=== PATIENT | female | born 1970 | race Caucasian/White ===

== ENCOUNTER 2025-07-30 06:23 | Inpatient (IN) | payer OTHER, SELFPAY ==
[2025-07-29 23:07] VITALS: BP 198/120
--- NOTE | 2025-07-29 23:54 | ED.GENMED ---
History of Present Illness
<Skylar Rios PA-C - Last Filed: 07/30/25 06:21>
General
Chief Complaint: Abdominal Pain
Source: patient
Exam Limitations: none
Time Seen by Provider: 07/29/25 23:49
Nursing documentation reviewed up to this point in time: agreed with
History of Present Illness
History of Present Illness:
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
and swelling for the past 10 days. There is nothing she can compare this pain to in the past. She reports that the pain is constant and she feels most comfortable when she lays on her left side. The pain occasionally radiates to the left side.
She also has experienced on and off vomiting for the past few days but denies any vomiting or nausea currently. Patient reports that this sensation feels like a gas bubble but has not gone away on its own. The patient reports that she has also had
poor appetite for about 1 to 2 months and reports that she has trouble gaining weight. She notes occasional chest discomfort which relieves with famotidine but denies current chest pain or shortness of breath. She denies any constipation or
diarrhea. She had a bowel movement this morning which was normal. She denies any rectal bleeding or pain. She also reports that she has had no intermittent burning sensation in her legs for the past multiple months. She reports that it feels
like she is getting a constant EMG. She denies any fevers at home. She has prior surgical history of gallbladder removal, esophageal dilation, knee surgery, total hip replacement, as well as tubal ligation.
Past History
<Skylar Rios PA-C - Last Filed: 07/30/25 06:21>
Past History
ED Past Medical History: CHF, GERD, HTN, Valvular disease, Other (Alcoholic hepatitis, portal vein thrombosis) and Other (Right Brachial plexus, she wears a glove on her right hand for chronic intermittent right hand swelling and)
ED Past Surgical History: Cholecystectomy, Gynecological and Orthopedic
Patient has exhibited threatening behavior?: No
PSI?: No
Social History
Tobacco: Smoker
Alcohol: None
Drug: None
Personal:
Living: with family
Employment: Employed
Family History
Family History: Diabetes and Hypertension
Review of Systems
<Skylar Rios PA-C - Last Filed: 07/30/25 06:21>
Review of Systems
All Other Systems: ROS reviewed and negative except as documented in HPI and ROS
Phy Exam
<Skylar Rios PA-C - Last Filed: 07/30/25 06:21>
Physical Exam
Physical Exam:
General: Patient is well appearing and in no acute distress; non-toxic
Skin: Warm and dry, no rashes or lesions
Head: Normocephalic, atraumatic
Eyes: Sclera non-icteric. EOMs intact.
Cardiac: Regular rate and rhythm, normal
Peripheral Vascular: No lower extremity swelling or edema
Pulm: Normal respiratory effort, no wheezes, rales, rhonchi
Abdomen: Right-sided abdominal tenderness noted to palpation, no palpable abdominal mass, normoactive bowel sounds
Neuro: CN II-XII intact, no focal neurologic deficits.
Psychiatric: Appropriate mood and affect.
Course
<Skylar Rios PA-C - Last Filed: 07/30/25 06:21>
Orders/Labs/Results
Orders:
Orders
07/30/25 00:08
CT Abd/pel W Iv And Oral Contr Urgent
Comment:
Reason For Exam: RLQ ab pain, swelling
Cardiac Monitoring- Treatment ONCE
Urinalysis Reflex To Culture Urgent
0.9% Sodium Chloride 500 ml [Nss] 500 ml IV BOLUS
Iohexol [Omnipaque] See Protocol PO NOW STA
Ketorolac [Toradol] 15 mg IV NOW STA
07/30/25 01:19
Complete Blood Count/With Diff Routine
07/30/25 01:53
Morphine Sulfate 2 mg IV NOW STA
07/30/25 02:16
Comprehensive Metabolic Panel Urgent
Comment: REDRAW
Lipase Urgent
Comment: REDRAW
Serum Osmolality Urgent
Comment: ADDED
07/30/25 02:23
Electrocardiogram (*1) Urgent
Reason for Study: Abdominal Pain
07/30/25 03:21
HYDROmorphone [Dilaudid] 0.5 mg IV NOW STA
07/30/25 04:04
Add On- LAB Urgent
Tests Added?: serum osmolality
Osmolality, Random Urine Urgent
Abnormal Lab Results
07/30/25 07/30/25
01:19 02:16
WBC 16.7 H 10^3/uL
(4.8-10.8)
MCH 31.1 H pg
(27.0-31.0)
Plt Count 401 H 10^3/uL
(130-400)
Abs Immat Gran (auto) 0.1 H 10^3/uL
(0-0.05)
Absolute Neuts (auto) 14.3 H 10^3/uL
(1.4-6.5)
Absolute Monos (auto) 0.9 H 10^3/uL
(0.1-0.6)
Neutrophils % 85.6 H %
(42.2-75.2)
Lymphocytes % 7.2 L %
(20.5-51.1)
Sodium 129 L mmol/L
(135-145)
Chloride 96 L mmol/L
(98-107)
BUN 28 H mg/dl
(7-17)
Glucose 122 H mg/dl
(70-99)
Serum Osmolality 307 H mOsm/kg
(275-300)
Lipase 426 H U/L
(23-300)
07/30/25 01:19
07/30/25 02:16
Vital Signs
Initial and Last Documented VS:
Initial Vital Signs
Temp Pulse Resp BP Pulse Ox
98.1 F 130 26 198/120 97
07/29/25 23:07 07/29/25 23:07 07/29/25 23:07 07/29/25 23:07 07/29/25 23:07
Last Documented Vital Signs
Temp Pulse Resp BP Pulse Ox
98.1 F 80 21 125/77 97
07/29/25 23:07 07/30/25 06:00 07/30/25 06:00 07/30/25 05:00 07/29/25 23:55
<Isela Laughlin DO - Last Filed: 07/30/25 05:10>
Orders/Labs/Results
Orders:
Orders
07/30/25 00:08
CT Abd/pel W Iv And Oral Contr Urgent
Comment:
Reason For Exam: RLQ ab pain, swelling
Cardiac Monitoring- Treatment ONCE
Urinalysis Reflex To Culture Urgent
0.9% Sodium Chloride 500 ml [Nss] 500 ml IV BOLUS
Iohexol [Omnipaque] See Protocol PO NOW STA
Ketorolac [Toradol] 15 mg IV NOW STA
07/30/25 01:19
Complete Blood Count/With Diff Routine
07/30/25 01:53
Morphine Sulfate 2 mg IV NOW STA
07/30/25 02:16
Comprehensive Metabolic Panel Urgent
Comment: REDRAW
Lipase Urgent
Comment: REDRAW
Serum Osmolality Urgent
Comment: ADDED
07/30/25 02:23
Electrocardiogram (*1) Urgent
Reason for Study: Abdominal Pain
07/30/25 03:21
HYDROmorphone [Dilaudid] 0.5 mg IV NOW STA
07/30/25 04:04
Add On- LAB Urgent
Tests Added?: serum osmolality
Osmolality, Random Urine Urgent
Abnormal Lab Results
07/30/25 07/30/25
01:19 02:16
WBC 16.7 H 10^3/uL
(4.8-10.8)
MCH 31.1 H pg
(27.0-31.0)
Plt Count 401 H 10^3/uL
(130-400)
Abs Immat Gran (auto) 0.1 H 10^3/uL
(0-0.05)
Absolute Neuts (auto) 14.3 H 10^3/uL
(1.4-6.5)
Absolute Monos (auto) 0.9 H 10^3/uL
(0.1-0.6)
Neutrophils % 85.6 H %
(42.2-75.2)
Lymphocytes % 7.2 L %
(20.5-51.1)
Sodium 129 L mmol/L
(135-145)
Chloride 96 L mmol/L
(98-107)
BUN 28 H mg/dl
(7-17)
Glucose 122 H mg/dl
(70-99)
Serum Osmolality 307 H mOsm/kg
(275-300)
Lipase 426 H U/L
(23-300)
07/30/25 01:19
07/30/25 02:16
Vital Signs
Initial and Last Documented VS:
Initial Vital Signs
Temp Pulse Resp BP Pulse Ox
98.1 F 130 26 198/120 97
07/29/25 23:07 07/29/25 23:07 07/29/25 23:07 07/29/25 23:07 07/29/25 23:07
Last Documented Vital Signs
Temp Pulse Resp BP Pulse Ox
98.1 F 80 21 125/77 97
07/29/25 23:07 07/30/25 06:00 07/30/25 06:00 07/30/25 05:00 07/29/25 23:55
<Skylar Rios PA-C - Last Filed: 07/30/25 06:21>
MDM/Problems Addressed
Differential Diagnosis Includes:
Differentials include appendicitis, small bowel obstruction, colitis, diverticulitis
MDM/Problems Addressed:
55-year-old female presents to the ER today with concerns of right sided abdominal pain and swelling. She also had nausea she episodes of vomiting but none today. She is afebrile. Physical exam she is well-appearing no acute distress does have
tenderness palpation on the right side abdomen. Normal active bowel sounds. No palpable abdominal masses. Labs reviewed leukocytosis noted. She is mildly hyponatremic. Elevated BUN to creatinine ratio. She is given IV fluids. Lipase 426,
there is questionable component of chronic pancreatitis noted in her chart. CAT scan reviewed, there is noted to be multiple peripancreatic fluid collections and calcifications causing mass effect resulting in moderate to severe narrowing of the
origin of the portal vein and distal most portion of the superior mesenteric vein and splenic vein. There is also mild dilation of the CBD which may reflect chronic postcholecystectomy changes she does have normal LFTs. Message sent to GI doctor
on-call, Dr. Paulino. Patient referred for admission.
Chronic conditions affecting care:
CHF, A-fib, GERD, chronic pancreatitis
<Skylar Rios PA-C - Last Filed: 07/30/25 06:21>
*Pulse Oximetry
SaO2: 97
Patient hypoxic: no
*Critical Care Note
Total Time (30-74mins, 75-104mins- exclusive of procedures): Not Applicable
Data Reviewed
Review of Other/Old Records Reveals: Records (reviewed discharge summary from 4/8/22 patient seen for suicide attempt from medication overdose)
Source: patient and records
<Skylar Rois PA-C - Last Filed: 07/30/25 06:21>
Update Note
Update Note:
Update, patient reports that the pain medication intially helped a bit but now her pain has returned and is severe rating it a 8/10, requesting more pain meds will give dose of dilaudid
ED Attending Note
<Skylar Rios PA-C - Last Filed: 07/30/25 06:21>
-
Portions of this chart may have been created with voice recognition software.� Occasional wrong word or��sound alike� substitutions may have occurred due to the inherent limitations of voice recognition software.
<Isela Laughlin DO - Last Filed: 07/30/25 05:10>
ED Attending Note
Patient seen and examined by attending physician: Yes
I performed the substantive portion of visit, reviewed & personally made and approve the management plan that is documented in note by myself or ROXANE.: Yes
I performed a history and physical exam of patient and discussed management with resident, I reviewed resident's note and agree with documented findings and plan of care.: Yes
ED Attending Note:
65-year-old female with prior history of EtOH abuse with cirrhosis presenting to the emergency department for upper abdominal pain. Patient reports symptoms for the past 10 days. Notes intermittent nausea and vomiting. Denies any fever. Denies
chest pain or difficulty breathing. Notes surgical history of cholecystectomy. Vital signs on arrival significant for hypertension, however improved after pain control.
On exam patient is in no acute distress, nontoxic. On abdominal exam, noted to have generalized tenderness to the upper abdomen as well as the right side of the abdomen. Labs and CT imaging obtained prior to my assessment. Labs show leukocytosis.
Also mild elevation of lipase and mild hyponatremia. CT shows multiple suspected pancreatic pseudocyst. Mass effect from the cyst is causing some narrowing to the portal vein and the SMV. Suspect etiology of patient's pain. Patient has required
multiple doses of pain medication. For this reason we will admit for pain management and GI consultation.
Discharge Plan
Departure
Patient Disposition: Admit
Date of Disposition: 07/30/25
Time of Disposition: 05:53
Admit to: Med/Surg
Presentation/result/management discussed w/ accepting MD/DO: Hospitalist
Condition: Fair
Discharge Problem:
Intractable abdominal pain
Prescriptions:
No Action
atenolol 25 MG tablet
12.5 mg PO DAILY Qty: 0 0RF
oxycodone-acetaminophen [Percocet] 5-325 mg tablet
1 tab PO Q8H PRN (Reason: pain) Qty: 7 0RF
acetaminophen 325 MG tablet
650 mg PO Q8HPRN PRN (Reason: mild pain)
hydrocodone-acetaminophen 1 TABLET tablet
1 tab PO Q6HPRN PRN (Reason: moderate pain)
Patient Comments:
12/21/21- filled #10 on 11/19/21
pantoprazole 40 MG tablet,delayed release (DR/EC)
40 mg PO DAILY
naproxen sodium 220 MG tablet
220 mg PO BID
Patient Comments:
12/21/21 ss; filled #24 for 12 day supply on 11/19/21
Referrals:
NONE,* [Family Provider, Internal Medicine]
Interventions
Interventions:
*Risk Screen - Suicide Last Done: 07/29/25 23:07
*General Assessment Last Done: 07/30/25 00:53
*Neglect/Abuse Screening Last Done: 07/29/25 23:07
*ED COVID-19 Vaccine History Last Done: 07/30/25 00:53
*ED Influenza Vaccine History Last Done: 07/30/25 00:53
SJ-Rczyfj-Dxitbxgugf Assessment Last Done: 07/30/25 01:35
Discharge Date and Time
Print Language: FRENCH
[2025-07-30] VITALS (11 sets, daily range): BP systolic 98–168; BP diastolic 56–89; BMI 16.7; BMI 16.3
[2025-07-30] MEDS: OMNIPAQUE 50 ML PO (00:35)
[2025-07-30] MEDS: TORADOL 15 MG IV (00:35)
[2025-07-30] MEDS: NSS 500 IV (00:35)
[2025-07-30 01:35] LABS: Hematocrit 44.0 % (37.0-47.0); Hemoglobin 14.8 g/dL (12.0-16.0); Mean Corp Hgb Conc. 33.6 g/dL (33.0-37.0); Mean Corpuscular Volume 92.4 fL (81.0-99.0); Nucleated Red Blood Cells % 0 %; Platelet Count 401 10^3/uL (130-400); Red Cell Dist. Width 13.1 % (11.5-14.5)
[2025-07-30] MEDS: MORPHINE SULFATE 2 MG IV (02:03)
[2025-07-30 03:14] LABS: ALT (SGPT) 17 U/L (0-35); AST (SGOT) 20 U/L (14-36); Albumin 3.7 g/dl (3.5-5.0); Alkaline Phosphatase 86 U/L (38-126); Blood Urea Nitrogen 28 mg/dl (7-17); Calcium 9.3 mg/dl (8.4-10.2); Carbon Dioxide 28 mmol/L (22-30); Chloride 96 mmol/L (98-107); Estimated Creatinine Clearance 67 ml/min; Glucose 122 mg/dl (70-99); Lipase 426 U/L (23-300); Potassium 3.6 mmol/L (3.5-5.1); Sodium 129 mmol/L (135-145); Total Protein 6.8 g/dl (6.3-8.2); eGFR > 60.00
[2025-07-30] MEDS: DILAUDID 0.5 MG IV ×5 (03:34→23:22)
--- NOTE | 2025-07-30 06:06 | HPS.HSE ---
Family Physician
-
Family Physician: * NONE
Chief Complaint
-
Abdominal pain
History of Present Illness
This is a 55-year-old with past medical history significant for CHF with preserved EF, history of prior alcohol dependence, portal vein thrombosis status post cardioversion and now off, CHF with preserved EF, GERD with H. pylori, history of
esophageal dysphagia with Schatzki ring s/p esophageal dilation, and gallstones s/p cholecystectomy who presents to the emergency department with worsening abdominal pain.
Patient reports right-sided abdominal pain and distention for about 10 days. She reports associated nausea and intermittent vomiting. She denies vomiting currently. She has distended sensation of gas that is also intermittent. She reports with
poor appetite and no weight gain for about 1 to 2 months. She reports mild chest discomfort but denies any shortness of breath chest pain palpitations. She has not had any constipation or diarrhea. She has not had any urinary symptom. She denies
any melena or hematochezia. She has not had any fevers or chills. Patient reports she drinks occasionally about 3 times a week. She stated that following her 6-month anticoagulation and she had a repeat study which showed resolution of portal
vein thrombosis on anticoagulation was discontinued.
On arrival in the emergency department she was afebrile, blood pressure was 125/77 with a pulse of 81 and she was satting 92% on room air. ECG shows a normal sinus rhythm at rate of 92. She had a white count of 16.7 otherwise CBC was unremarkable.
Sodium was 129 the rest of the electrolytes were normal with normal BUN and creatinine. Lipase was elevated at 426 with normal [address]s.
CT of the abdomen pelvis showing multiple peripancreatic fluid collections with well-defined peripheral rims of enhancement consistent with with pseudocysts. There is associated pancreatic calcifications, mild fatty infiltration along the margins
of the pancreas constant with acute on chronic pancreatitis.
There is some mass effect from the collections resulting in moderate to severe narrowing at the origin of the portal vein and distal portion of the SMV and splenic vein.
She is status post cholecystectomy, dilation of the CBD we may reflect chronic postcholecystectomy changes. Slight increase compared to prior.
Medical History
Past Medical History
Past Medical History: Reports Other
Additional Past Medical History:
Nephrolithiasis
Hypertension
GERD
Esophageal Schatzki ring
Cervical dysplasia
H. pylori
CHF with preserved EF
Depression
Past Surgical History: Reports Other
Additional Past Surgical History:
Tubal ligation
Cholecystectomy
Right total hip arthroplasty
Social History
Tobacco: Smoker
Alcohol: Occasional
Drug: None
Living: With Family
Family History
Family History: Not pertinent
Allergies / Home Medications
Allergies reflects when Allergies were last updated in [facility].
Home Medications with original date entered in [facility]
Allergy/Medication List:
Allergies
Allergy/AdvReac Type Severity Reaction Status Date / Time
adhesive tape Allergy Hives Verified 07/29/25 23:10
cephalexin Allergy Hives Verified 07/29/25 23:10
Cephalosporins Allergy Hives Verified 07/29/25 23:10
erythromycin base Allergy Hives Verified 07/29/25 23:10
quetiapine (From Seroquel) Allergy Unknown Verified 07/29/25 23:10
tetracycline Allergy Hives Verified 07/29/25 23:10
Tetracyclines Allergy Hives Verified 07/29/25 23:10
Home Medications
acetaminophen 325 mg tablet 650 mg PO Q8HPRN PRN mild pain 12/21/21
hydrocodone 5 mg-acetaminophen 325 mg tablet 1 tab PO Q6HPRN PRN moderate pain 12/21/21
naproxen sodium 220 mg tablet 220 mg PO BID Pain 12/21/21
pantoprazole 40 mg tablet,delayed release 40 mg PO DAILY Gastrointestinal issue 12/21/21
atenolol 25 mg tablet 12.5 mg (1/2 x 25 mg) PO DAILY Blood pressure ##0 12/24/21
oxycodone-acetaminophen 5 mg-325 mg tablet (Percocet) 1 tab PO Q8H PRN pain #7 tabs 01/10/23
Review of Systems
-
Constitutional: Reports No Symptoms
EENT: Reports No Symptoms
Respiratory: Reports No Symptoms
Cardiac: Reports No Symptoms
Abdomen/GI: Reports Abdominal Pain
: Reports No Symptoms
Musculoskeletal: Reports No Symptoms
Skin: Reports No Symptoms
Neurological: Reports No Symptoms
Endocrine: Reports No Symptoms
Hematologic/Lymphatic: Reports No Symptoms
Psych: Reports No Symptoms
Physical Exam
Vital Signs
Vital Signs
Temp Pulse Resp BP Pulse Ox
98.1 F 80 21 125/77 97
07/29/25 23:07 07/30/25 06:00 07/30/25 06:00 07/30/25 05:00 07/29/25 23:55
Physical Exam
General: Well Developed, Well Nourished and No Apparent Distress
HEENT: NormoCephalic, Moist mucous membranes and Atraumatic
Respiratory: Clear
Cardiac: S1/S2 and Regular Rhythm; No Murmur or Rub
GI: Soft, Non Distended and Normal Bowel Sounds; No Organomegaly
Rectal: Deferred by Provider
Musculoskeletal: No Clubbing, No Cyanosis and No Edema
Skin: No Rash
Neuro: AO x 3 and Nonfocal/grossly intact
Laboratory Results
-
07/30/25 01:19
07/30/25 02:16
Laboratory Results
Total Bilirubin 0.5 mg/dl (0.2-1.3) 07/30/25 02:16
AST 20 U/L (14-36) 07/30/25 02:16
ALT 17 U/L (0-35) 07/30/25 02:16
Alkaline Phosphatase 86 U/L (38-126) 07/30/25 02:16
Lipase 426 U/L (23-300) H 07/30/25 02:16
Data Reviewed
-
CT Scan: Report Reviewed by me
Medical Tests (Nuc Med, Echo, EKG etc): Image Personally Visualized and interpreted
Lab Data: Labs Reviewed by me
Old Records: Reviewed
Impression/Plan
-
IMPRESSION:
55-year-old with past medical history of alcohol abuse, history of prior acute pancreatitis, portal vein thrombosis, hypertension, GERD, CHF with preserved EF presenting to the emergency department with subacute abdominal pain for at least 10 days
and found to have findings consistent with acute and chronic pancreatitis with stenosis/narrowing of portal vein as well as SMV and splenic vein distal portion and secondary to pancreatic pseudocysts.
PLAN:
Acute on chronic pancreatitis -suspect this is secondary to development of the pseudocysts and calcifications
-Admit to MedSurg
-npo
-IV fluids
-Pain control and antiemetics
- ppi iv
-Trend LFTs
-In no overt signs of infection, hold off on antibiotic
-No thrombosis, no indication for anticoagulation
-GI consultation, possible IR cyst decompression
Hyponatremia - Suspect secondary to hypovolemia and free water intake
- IV NS fluids for now
- and repeat na in 24 hours
- antiemetics
- check urine osm and Na
DVT PPX - lovenox sq
Code status - Full Code
--- NOTE | 2025-07-30 08:10 | W.PN.HOSP.TC ---
Today's Communication/Plan
-
See pn
Assessment / Plan
Assessment / Plan
55yo F with PMHX of Schatzki ring and esophageal narrowing with Hx of esophageal dilations, PV thrombosis, meningioma, cholecystectomy, cronic pancreatitis, bipolar, HX of alcohol use d/o, HFpEF, current smoker came with 10 days of RUQ and
epigastric pressure and pain, CT showed numerous pancreatic calcifications with the largest one 3.1cm and the other 2.1cm causing mass effect on portal vein, SMV and splenic karri with possible acute on chronic pancreatitis. Also compained of new LLQ
outpouchin, found rducible non-incarcerated abd hernia
A/P:
#Acute on chronic pancreatitis
#Pancreatic cysts with mass effect on portal vein, SVC and splenic vein
unclear if due to recurrent alcohol intake
NPO
GI consult
pain mgmt
IVF
#Hyponatremia
follow BMP
check Uosm
cont NS
#Leukocytosis
patient without urinary, respiratory symptoms
follow CBC off ABx
#b/l LE dermatitis, suspect venous insufficiency
quit smoking
#Nicotine dependency
counseled on cessation
nicoderm
#Bipolar
outpatient f/u with psychiatry
#Calcification of plantar ligament
outpatient podiatry
#Abdominal hernia
Outpatient GenSx
DVT ppx lovenox
FUll code
I have spent at least 56min reviewing chart, test results, communication with consultants and providing direct patient care
Anticipated Discharge: 24 - 48 hours
Subjective/Interval History
-
Date of Service: July 30, 2025
Objective Data
-
Labs:
Laboratory Results
07/30/25 07/30/25 07/30/25
00:31 01:19 02:16
WBC Cancelled 16.7 H
Hgb Cancelled 14.8
Hct Cancelled 44.0
Plt Count Cancelled 401 H
Sodium Cancelled Cancelled 129 L
Potassium Cancelled Cancelled 3.6
Chloride Cancelled Cancelled 96 L
Carbon Dioxide Cancelled Cancelled 28
BUN Cancelled Cancelled 28 H
Creatinine Cancelled Cancelled 0.6
Glucose Cancelled Cancelled 122 H
Calcium Cancelled Cancelled 9.3
Total Bilirubin Cancelled Cancelled 0.5
AST Cancelled Cancelled 20
ALT Cancelled Cancelled 17
Alkaline Phosphatase Cancelled Cancelled 86
07/30/25
08:05
WBC
Hgb
Hct
Plt Count
Sodium Pending
Potassium Pending
Chloride Pending
Carbon Dioxide Pending
BUN Pending
Creatinine Pending
Glucose Pending
Calcium Pending
Total Bilirubin
AST
ALT
Alkaline Phosphatase
Vital Signs:
Vital Signs
Temp Pulse Resp BP Pulse Ox
98.1 F 74 18 118/73 97
07/29/25 23:07 07/30/25 07:15 07/30/25 07:15 07/30/25 07:00 07/29/25 23:55
Review of Systems
-
History Source: Patient
All other systems: Reviewed and negative
Physical Exam
-
General: No Apparent Distress
HEENT: Normocephalic
Respiratory: Clear to Auscultation
Cardiac: Regular Rhythm
GI: Soft, Nondistended, Tender (epgastrium) and Other (LLQ hernia)
Genito-urinary: No Costovertebral Tender
Musculoskeletal: No Clubbing, No Cyanosis and No Edema
Neuro: Awake, Alert, Oriented and AO x 3
Psych: Calm
--- NOTE | 2025-07-30 09:10 | CON.GI ---
Addendum entered and electronically signed by Noreen Noyola Do, MD 07/30/25 16:25:
I saw and evaluated the patient. I reviewed the resident�s note and agree with findings and plan as documented in the resident�s note.
Aishwarya is a 55yo W with h/o ETOH abuse, recurrent pancreatitis and chronic pain who presents for worsening epigastric abd pain with N/V. Her last ETOH drink was over the weekend. She states that abd pain now is 7 out of 10. She is ambulatory. Her
last pancreatitis painful episode was about 1 yr ago. She lives with . She has h/o reflux and uses pepcid OTC PRN basis. She lost health insurance and has not gotten routine medical care. Vitals stable. abd thin diffusely TTP, R inguinal
reducible hernia. Hypoactive BS. Labs reviewed
Impression
- Abd pain consistent with acute on chronic pancreatitis
Suspect ETOH related
She is s/p cholecystectomy
- Positive urine drug screen
- Possible R sided inguinal hernia
- Lack of health insurance
- ETOH abuse
- Chronic pain
- GERD
- Wt loss
- h/o PVT
- Afib
Recommendation
- C/w IVF
- Trial CLD upon pt's request
- Counseled on ETOH cessation
- Appreciate social work assistance. She will try to obtain health insurance
- C/w pain management and anti-emetics per primary team
- C/w PPI daily IV
- Miralax daily
Will follow with you
Original Note:
Consultation
-
Date/Time Consultation Requested: 07/30/2025 8:33
Date/Time Consultation Performed: 07/30/2025 8:33
Requesting Provider: Dr. Allen
Performing Provider: Dr. Paulino
Reason for Consultation: pancreatic cysts
Medical History
Chief Complaint / HPI
Chief Complaint: abdominal pain, nausea, vomiting
History of Present Illness:
55yoF PMH HFpEF w/ 'leaky valve', alcohol use disorder, portal vein thrombosis, GERD w H Pylori, esophageal dysphagia w/ schatzki ring, cholecystectomy, chronic pain, thyroid nodule, possible meningioma dx, presenting with abdominal pain and
intermittent nausea for 10 days.
Pt reports feeling a protruding, uncomfortable mass in her RLQ about 10 days ago when she began feeling nauseas and abdominal pain in her epigastrium. Pt reports worsened pain over the weekend. She describes the epigastric pain as dull, achy that is
intermittent. She reports only occasional postprandial pain. Pt reports intermittent nausea and vomiting over the last few days but none currently. Denies hematemesis and hematochezia. She reports normal BM, for her is once every 3 days. Denies
recent changes in BM. Pt reports some lightheadedness over the last few days as well as muscle cramps throughout her body and extremities.
She has chronic history of alcohol use since her son in 2010. She reports drinking heavily for about 10 years that were previously associated with about 5 acute bouts of pancreatitis during this time. She reports reducing her intake of alcohol
to around 2 drinks every 4 or so days, which says is significantly less than previously. Last drink of alcohol was Tuesday. Pt describes this pain as different from prior episodes of pancreatitis. She describes prior episodes as debilitating, like
she is dying with nonstop emesis. She describes this pain instead as discomfort with intermittent emesis. Additionally, pt reports being hungry and having desire to eat which is different than prior episodes.
Pt reports having EGD every year or two for her schatzki ring, last one we have record of was in 2020 with EUS demonstrating evidence of chronic pancreatitis. She reports losing insurance coverage about a year ago, so she has not been able to get
her prescribed psychiatric medications including abilify, lamictal, trazadone. Pt reports significant weight loss over the last 3 months. She attributes the weight loss to her psychiatric illness, reporting it is a way of passive suicide, though she
is not actively suicidal with no intent of harming herself currently. She reports eating when she does feel hungry. Last meal yesterday afternoon.
Of note, pt has remote hx of testing positive for H pylori around 20 years ago. She states that she had an allergic reaction to the antibiotic course, so she did not complete tx. However, repeat EGD bx have been negative for H pylori since.
Past Medical History
Past Medical History: CHF (preserved EF), GERD (schaztki ring, remote h pylori), HTN, Valvular Disease (pt reports 2: tricuspid and another unknown one), Psychiatric (bipolar) and Other (possible meningioma read on brain MRI at [facility])
Past Surgical History: Cholecystectomy
Social History
Tobacco: Smoker (5-7 cigarettes/day for 25 years)
Alcohol: Chronic Alcoholic (previously more, now reported about 2 drinks 4 days a week)
Personal:
Allergies / Home Medications
Allergy/AdvReac Type Severity Reaction Status Date / Time
adhesive tape Allergy Hives Verified 07/29/25 23:10
cephalexin Allergy Hives Verified 07/29/25 23:10
Cephalosporins Allergy Hives Verified 07/29/25 23:10
erythromycin base Allergy Hives Verified 07/29/25 23:10
quetiapine (From Seroquel) Allergy Unknown Verified 07/29/25 23:10
tetracycline Allergy Hives Verified 07/29/25 23:10
Tetracyclines Allergy Hives Verified 07/29/25 23:10
�Medication �Instructions �Recorded
acetaminophen 325 mg tablet 650 mg PO Q8HPRN PRN mild pain 12/21/21
hydrocodone 5 mg-acetaminophen 325 1 tab PO Q6HPRN PRN moderate pain 12/21/21
mg tablet
naproxen sodium 220 mg tablet 220 mg PO BID Pain 12/21/21
pantoprazole 40 mg tablet,delayed 40 mg PO DAILY Gastrointestinal 12/21/21
release issue
atenolol 25 mg tablet 12.5 mg (1/2 x 25 mg) PO DAILY 12/24/21
Blood pressure ##0
oxycodone-acetaminophen 5 mg-325 1 tab PO Q8H PRN pain #7 tabs 01/10/23
mg tablet (Percocet)
Review of Systems
-
History Source: Patient
All other systems: A 12 pt ROS was Negative except as stated above in HPI
Constitutional: Reports Weight Loss
EENT: Reports No Symptoms
Respiratory: Reports No Symptoms
Cardiac: Reports Palpitations (baseline)
Abdomen/GI: Reports Abdominal Pain, Nausea and Vomiting; Denies Diarrhea, Constipated, Bloody Stools or Black Stools
Musculoskeletal: Reports Other (muscle cramping)
Skin: Reports No Symptoms
Neurological: Reports Other (lightheaded)
Endocrine: Reports No Symptoms
Vital Signs
Temp Pulse Resp BP Pulse Ox
98.6 F 76 17 131/79 99
07/30/25 08:38 07/30/25 08:38 07/30/25 08:38 07/30/25 08:38 07/30/25 08:38
Physical Exam
Exam
General: No Apparent Distress, Comfortable and Good Appetite (wants to order food)
HEENT: Normocephalic, Anicteric and Moist Mucous Membranes
Respiratory: Clear and Non Labored Respirations
Cardiac: S1/S2 and Regular Rhythm
GI: Soft, Non Distended, Tender (upper quadrants) and Other (protruding, hernia-like mass RLQ, nontender, reducible)
Musculoskeletal: No Edema
Skin: Warm and Dry
Neuro: AO x 3 and Nonfocal/Grossly Intact
Psych: Calm
Results
WBC 16.7 10^3/uL (4.8-10.8) H 07/30/25 01:19
Hgb 14.8 g/dL (12.0-16.0) 07/30/25 01:19
Hct 44.0 % (37.0-47.0) 07/30/25 01:19
MCV 92.4 fL (81.0-99.0) 07/30/25 01:19
Plt Count 401 10^3/uL (130-400) H 07/30/25 01:19
Absolute Neuts (auto) 14.3 10^3/uL (1.4-6.5) H 07/30/25 01:19
Sodium 129 mmol/L (135-145) L 07/30/25 02:16
Potassium 3.6 mmol/L (3.5-5.1) 07/30/25 02:16
Chloride 96 mmol/L (98-107) L 07/30/25 02:16
Carbon Dioxide 28 mmol/L (22-30) 07/30/25 02:16
BUN 28 mg/dl (7-17) H 07/30/25 02:16
Creatinine 0.6 mg/dL (0.6-1.0) 07/30/25 02:16
Calcium 9.3 mg/dl (8.4-10.2) 07/30/25 02:16
Total Bilirubin 0.5 mg/dl (0.2-1.3) 07/30/25 02:16
AST 20 U/L (14-36) 07/30/25 02:16
ALT 17 U/L (0-35) 07/30/25 02:16
Alkaline Phosphatase 86 U/L (38-126) 07/30/25 02:16
Lipase 426 U/L (23-300) H 07/30/25 02:16
Diagnostic Image Results: CT abd
IMPRESSION:
Findings of acute on chronic pancreatitis with multiple peripherally enhancing peripancreatic collections along the pancreatic head/uncinate process which are likely pseudocysts. The largest measures 4.9 cm anteriorly and extends along the lesser
curvature of the stomach. There is associated local mass effect with severe narrowing of the proximal main portal vein/confluence of the splenic vein and superior mesenteric vein.
Prior cholecystectomy. There is mild intrahepatic and extra hepatic biliary duct dilation with the common bile duct measuring 1.0 cm. This may be reservoir effect in the setting of prior cholecystectomy, however the common bile duct appears
increased in size when compared with prior. Recommend correlation with lab values if there is concern for biliary obstruction.
Small volume perihepatic and perisplenic free fluid as well as small volume free fluid in the pelvis.
Preliminary report provided by [facility] at 0426.
11/14/24 MRI
1. MILD ACUTE INTERSTITIAL EDEMATOUS PANCREATITIS.
2. 4.1 cm oval-shaped circumscribed PANCREATIC PSEUDOCYST in the head of the pancreas which has enlarged since 05/13/2021.
3. Mild biliary dilatation without evidence for choledocholithiasis or obstructing mass.
4. Previous cholecystectomy.
5. Moderate portacaval and mild lianne hepatis lymphadenopathy.
6. Minimal ascites in the right subhepatic space and right paracolic gutter.
Prior GI Procedures:
EGD: EUS 07/08/21
Impression: - Pancreas with changes indeterminate for chronic
pancreatitis by Heartwell criteria
- No evidence of choledocholithiasis
- No lymphadenopathy by echoendoscopic criteria
Findings:
Localized mild mucosal changes characterized by congestion and erythema
were found in the lower third of the esophagus. Biopsies were taken with
a cold forceps for histology. There was no evidence of Schatskis ring
The entire examined stomach was normal.
The examined duodenum was normal.
05/31/14
Impression: - Normal duodenal bulb and 2nd part of the duodenum.
Biopsied.
- Erythematous mucosa in the antrum. Biopsied.
- Erythematous mucosa in the gastric body. Biopsied.
- Erythematous mucosa in the gastric fundus. Biopsied.
- Hiatus hernia.
- LA Grade A reflux esophagitis.
- Z-line regular, 39 cm from the incisors.
- Normal middle third of esophagus. Biopsied.
- Esophageal motility disorder.
- Non-obstructing Schatzki ring.
Colonoscopy:
Assessment / Plan
-
55yoF PMH HFpEF w/ 'leaky valve', alcohol use disorder, portal vein thrombosis, GERD w H Pylori, esophageal dysphagia w/ schatzki ring, cholecystectomy, thyroid nodule, meningioma, presenting with likely acute on chronic pancreatitis.
AFVSS. WBC 16.7 in setting of acute inflammation. Lipase 426, with CT demonstrating acute on chronic pancreatitis with pseudocysts. MRI in 2021 demonstrated 4.1cm pseudocyst at the time with similar findings of acute pancreatitis that had grown
since prior MRI in 2020. Pt continues to drink alcohol multiple days a week with hx AUD, last drink this past Tuesday. Pt has dull epigastric pain with intermittent nausea and vomiting without hematochezia or hematemesis. Recent weight loss pt
attributes to psychiatric causes not changes in appetite. Since last admission in 2022, pt has lost over 30lbs. Pt has reducible hernia RLQ on exam. Denies hematemesis, hematochezia, changes in BM.
#Acute on chronic pancreatitis
#AUD
- Continue supportive measures. Conservative IVF in setting of HF, antiemetics, pain regimen
- Plan to advance diet to clears as tolerated.
- Continue to recommend alcohol cessation
#hernia
- outpt f/u w surgery
PENDING ATTENDING RECOMMENDATIONS
-
-
Thank you for consultation and allowing me to participate in the patient's care. Please call the battery container finishing hand GI physician during the after hours with any questions or concerns.
[2025-07-30] MEDS: PROTONIX IV 40 MG IV (09:18)
[2025-07-30] MEDS: D5/0.9% SODIUM CHLORIDE 1000 IV (09:18)
[2025-07-30] MEDS: NSS (PRESERVATIVE FREE) 10 ML IV (09:18)
--- NOTE | 2025-07-30 10:14 | W.PN.UPDATE ---
Update Note
Progress Note Update
#Alcohole use d/o
still drinking
MSAS and Ativan PRN
THiamine/FOlate
Watch for withdrawal, DT
[2025-07-30 10:24] LABS: Urine Character Clear (Clear)
[2025-07-30 10:59] LABS: HDL Cholesterol 34 mg/dl; LDL Cholesterol, Calculated 65 mg/dl; Very Low Density Lipoprotein 35 mg/dl (0-30)
[2025-07-30 11:06] LABS: Urine Red Blood Cell 0-2 /HPF (0-2); Urine Squamous Cell 16-20 /LPF (Few); Urine White Cell 0-2 /HPF (0-5)
[2025-07-30 11:08] LABS: Blood Urea Nitrogen 24 mg/dl (7-17); Calcium 9.0 mg/dl (8.4-10.2); Carbon Dioxide 27 mmol/L (22-30); Chloride 97 mmol/L (98-107); Estimated Creatinine Clearance 66 ml/min; Glucose 94 mg/dl (70-99); Potassium 3.7 mmol/L (3.5-5.1); Sodium 127 mmol/L (135-145); eGFR > 60.00
[2025-07-30] MEDS: NSS 1000 IV (14:58)
--- NOTE | 2025-07-30 16:08 | CM ---
Alert awake oriented patient who lives with her son Suhail in a 2 story home with 1 steps to enter and bed/bathroom on first floor. She is independent in activates of daily living.She does not drive .She has a cane and walker in home if needed.[facility]SI
saw patient . Pt has no insurance.Pt declined substance abuse counselling.
[facility] in past . No SNF hx, [facility] hx
Pharmacy [facility]
PCP [facility] handout given
PLAN Home with no needs
[2025-07-30] MEDS: D5/0.9% SODIUM CHLORIDE IV (17:05)
[2025-07-30 17:33] LABS: Blood Urea Nitrogen 19 mg/dl (7-17); Calcium 8.5 mg/dl (8.4-10.2); Carbon Dioxide 29 mmol/L (22-30); Chloride 100 mmol/L (98-107); Estimated Creatinine Clearance 66 ml/min; Glucose 94 mg/dl (70-99); Potassium 3.6 mmol/L (3.5-5.1); Sodium 131 mmol/L (135-145); eGFR > 60.00
[2025-07-30] MEDS: LOVENOX 30 MG SC (17:41)
[2025-07-30] MEDS: THIAMINE INJECTION 200 MG IV (20:07)
[2025-07-30 21:48] LABS: Blood Urea Nitrogen 15 mg/dl (7-17); Calcium 8.4 mg/dl (8.4-10.2); Carbon Dioxide 29 mmol/L (22-30); Chloride 98 mmol/L (98-107); Estimated Creatinine Clearance 66 ml/min; Glucose 75 mg/dl (70-99); Potassium 3.6 mmol/L (3.5-5.1); Sodium 132 mmol/L (135-145); eGFR > 60.00
[2025-07-31] MEDS: NSS 1000 IV ×2 (01:49→12:09)
[2025-07-31 05:09] LABS: Hematocrit 36.7 % (37.0-47.0); Hemoglobin 12.0 g/dL (12.0-16.0); Mean Corp Hgb Conc. 32.7 g/dL (33.0-37.0); Mean Corpuscular Volume 96.8 fL (81.0-99.0); Platelet Count 331 10^3/uL (130-400); Red Cell Dist. Width 13.2 % (11.5-14.5)
[2025-07-31 05:34] LABS: Blood Urea Nitrogen 10 mg/dl (7-17); Calcium 8.4 mg/dl (8.4-10.2); Carbon Dioxide 28 mmol/L (22-30); Chloride 103 mmol/L (98-107); Estimated Creatinine Clearance 66 ml/min; Glucose 144 mg/dl (70-99); Magnesium 2.1 mg/dl (1.6-2.3); Potassium 3.8 mmol/L (3.5-5.1); Sodium 134 mmol/L (135-145); eGFR > 60.00
[2025-07-31 07:42] VITALS: BP 111/62
[2025-07-31] MEDS: FOLVITE 1 MG PO (08:36)
[2025-07-31] MEDS: THIAMINE INJECTION 200 MG IV (08:36)
[2025-07-31] MEDS: NSS (PRESERVATIVE FREE) 10 ML IV (08:36)
[2025-07-31] MEDS: PROTONIX IV 40 MG IV (08:36)
[2025-07-31] MEDS: MIRALAX 17 GRAMS PO (08:40)
--- NOTE | 2025-07-31 09:21 | W.PN.GI.CBS2 ---
Addendum entered and electronically signed by Noreen Noyola Do, MD 07/31/25 11:27:
I saw and evaluated the patient. I reviewed the resident�s note and agree with findings and plan as documented in the resident�s note.
Aishwarya is tolerating FLD. Her abd pain improved. Vitals stable. NTTP NABS. Labs reviewed
Recommendations
- Ok to go to low fat diet
- Avoid ETOH
- Can FU in GI office or [facility] until insurance obtained
Will sign off please call for ?
Original Note:
Today's Communication / Plan
-
PENDING ATTENDING RECOMMENDATIONS
Assessment / Plan
-
55yoF PMH HFpEF, polysubstance abuse disorder, portal vein thrombosis, GERD w remote hx H Pylori w/ schatzki ring, cholecystectomy, recurrent episodes of pancreatitis, presenting with likely acute on chronic pancreatitis with abdominal pain and
intermittent nausea and vomiting.
AFVSS. WBC 16.7 in setting of acute inflammation. Lipase 426, with CT demonstrating acute on chronic pancreatitis with pseudocysts. MRI in 2021 demonstrated 4.1cm pseudocyst at the time with similar findings of acute pancreatitis that had grown
since prior MRI in 2020. Pt continues to drink alcohol multiple days a week with hx AUD, last drink this past Tuesday. Pt has dull epigastric pain with intermittent nausea and vomiting without hematochezia or hematemesis. Recent weight loss pt
attributes to psychiatric causes not changes in appetite. Since last admission in 2022, pt has lost over 30lbs. Pt has reducible hernia RLQ on exam. Denies hematemesis, hematochezia, changes in BM.
Today, pt reports resolved symptoms with no abdominal pain or nausea. She denies constipation but has not had a BM since presenting to the ED. UDS + opiates, amphetamines and methamphetamines despite denying substance abuse. Plan to start bowel
regimen of daily miralax in setting of opioid use. Pt endorsed experiencing food insecurity when prompted. She asked about disability and access to insurance. Reached out to for resources.
#Acute on chronic pancreatitis
- Continue supportive measures. Conservative IVF in setting of HF, antiemetics, pain regimen. Symptoms seemed to have resolved
- Plan to advance diet as tolerated.
#polysubstance use
- Continue to recommend alcohol and recreational substance cessation
- Bowel regimen: daily miralax
#SDOH: food insecurity, lack of insurance
- CM consult
#hernia
- outpt f/u w surgery
Subjective
Subjective
Date of Service: July 31, 2025
Pt reports feeling better today with resolved pain. Denies abdominal pain, nausea, vomiting. She reports no BM since being in the hospital. Denies using opioids.
Pt reports experiencing food insecurity. When asked if she feel is able to attain food every day, she reported no. Pt asked about disability and different resources available to her given she has no insurance. We discussed having the CM see her
today to provide a list of resources.
Objective
Data Reviewed
Laboratory Data:
Laboratory Results
07/31/25 04:40
Laboratory Results
Phosphorus Cancelled 07/31/25 06:00
Magnesium Cancelled 07/31/25 06:00
Total Bilirubin 0.5 mg/dl (0.2-1.3) 07/30/25 02:16
AST 20 U/L (14-36) 07/30/25 02:16
ALT 17 U/L (0-35) 07/30/25 02:16
Alkaline Phosphatase 86 U/L (38-126) 07/30/25 02:16
Lipase 426 U/L (23-300) H 07/30/25 02:16
Vital Signs and I&O:
Vital Signs
Temp Pulse Resp BP Pulse Ox
98.1 F 75 17 111/62 97
07/31/25 07:42 07/31/25 07:42 07/31/25 07:42 07/31/25 07:42 07/31/25 07:42
I&O
07/30/25 07/31/2508/01/25
06:59 06:59 06:59
Intake Total 360 / 360
Balance 360 / 360
Physical Exam
Physical Exam
HEENT: Anicteric, Moist mucous membranes and Other (cachectic )
Cardiology: Normal Sinus Rhythm
Pulmonary: Other (nonlabored breathing)
GI: Soft, Non Distended, Flat (very thin, palpable abdominal hernia RLQ ) and Non Tender
Extremities: No Edema
Neuro: Non Focal
[2025-07-31 09:33] LABS: Blood Urea Nitrogen 8 mg/dl (7-17); Calcium 8.4 mg/dl (8.4-10.2); Carbon Dioxide 28 mmol/L (22-30); Chloride 104 mmol/L (98-107); Estimated Creatinine Clearance 66 ml/min; Glucose 86 mg/dl (70-99); Potassium 3.8 mmol/L (3.5-5.1); Sodium 135 mmol/L (135-145); eGFR > 60.00
--- NOTE | 2025-07-31 09:43 | W.PN.HOSP.TC ---
Addendum entered and electronically signed by Ernie Valentine MD 07/31/25 11:15:
#Asymptomatic bacteriuria
no indication for Abx
Original Note:
Today's Communication/Plan
-
low residue diet
GI to follow
Assessment / Plan
Assessment / Plan
55yo F with PMHX of Schatzki ring and esophageal narrowing with Hx of esophageal dilations, PV thrombosis, meningioma, cholecystectomy, cronic pancreatitis, bipolar, HX of alcohol use d/o, HFpEF, current smoker came with 10 days of RUQ and
epigastric pressure and pain, CT showed numerous pancreatic calcifications with the largest one 3.1cm and the other 2.1cm causing mass effect on portal vein, SMV and splenic karri with possible acute on chronic pancreatitis. Also compained of new LLQ
outpouchin, found rducible non-incarcerated abd hernia
A/P:
#Acute on chronic alcoholic pancreatitis
#Pancreatic cysts with mass effect on portal vein, SVC and splenic vein
unclear if due to recurrent alcohol intake
NPO
GI consult
pain mgmt
IVF
#Alcohol use d/o
still drinking
MSAS and Ativan PRN
Thiamine/FOlate
Watch for withdrawal, DT
Positive methamphetamine in urine - concern for drug abuse, patient denied
#Hyponatremia
resolved on IVF
#Leukocytosis - resolved
patient without urinary, respiratory symptoms
most liekly 2/2 pancreatitis
#b/l LE dermatitis, suspect venous insufficiency
quit smoking
#Nicotine dependency
counseled on cessation
nicoderm
#Bipolar
outpatient f/u with psychiatry
#Calcification of plantar ligament
outpatient podiatry
#Abdominal hernia
Outpatient GenSx
DVT ppx lovenox
FUll code
I have spent at least 51min reviewing chart, test results, communication with consultants and providing direct patient care
Anticipated Discharge: Within 24 hours
Subjective/Interval History
-
Date of Service: July 31, 2025
Objective Data
-
Labs:
Laboratory Results
07/30/25 07/31/25 07/31/25
21:22 03:32 04:40
WBC Cancelled 8.1
Hgb Cancelled 12.0
Hct Cancelled 36.7 L
Plt Count Cancelled 331
Sodium 132 L Cancelled 134 L
Potassium 3.6 Cancelled 3.8
Chloride 98 Cancelled 103
Carbon Dioxide 29 Cancelled 28
BUN 15 Cancelled 10
Creatinine 0.6 Cancelled 0.5 L
Glucose 75 Cancelled 144 H
Calcium 8.4 Cancelled 8.4
07/31/25 07/31/25
06:00 08:04
WBC
Hgb
Hct
Plt Count
Sodium Cancelled 135
Potassium Cancelled 3.8
Chloride Cancelled 104
Carbon Dioxide Cancelled 28
BUN Cancelled 8
Creatinine Cancelled 0.5 L
Glucose Cancelled 86
Calcium Cancelled 8.4
Vital Signs:
Vital Signs
Temp Pulse Resp BP Pulse Ox
98.1 F 75 17 111/62 97
07/31/25 07:42 07/31/25 07:42 07/31/25 07:42 07/31/25 07:42 07/31/25 09:27
I&O
07/30/25 07/31/25 08/01/25
06:59 06:59 06:59
Intake Total 360 / 360
Balance 360 / 360
Review of Systems
-
History Source: Patient
All other systems: Reviewed and negative
Physical Exam
-
General: No Apparent Distress
HEENT: Normocephalic
Respiratory: Clear to Auscultation
Cardiac: Regular Rhythm
GI: Soft, Nontender and Nondistended
Neuro: Awake, Alert, Oriented and AO x 3
Psych: Calm
--- NOTE | 2025-07-31 09:58 | PN.CDI ---
CDI
- -
CDI:
Physician Documentation Request
Admit Date: 07/30/25 06:23
Dear Doctor Serge,
Please review the following and provide your response in the progress notes.
Clinical Indicators:
Alley Cleaner, 07/30
#CBW: 89 lbs BMI 16.3 underweight (07/30).
#...Compared to stated UBW of 110 lbs pt with a 19 % weight loss in 3 months, significant.
#...With weight loss of > 7.5% in 3 months, < 75% estimated needs > 1 month
#...RD did observe temporal wasting, orbital area sunken in, apparent ribs
#...and protrusion of clavical.
#...meeting AND/ASPEN criteria for severe protein calorie malnutrition of chronic illness
Based on the above information and your assessment, which of the following most accurately represents the patient's nutritional status?
Severe Protein Calorie Malnutrition of Chronic Illness (document assessment)
Other (please specify)
[place] Criteria (ACP Hospitalist 2017)
2 or more criteria must be present for either
non severe or severe malnutrition
Note that the criteria differs related to the
presence of an acute or chronic illness
Chronic Illness
Energy Intake Non Severe: <75% for >1 month
Severe: <75% for >1 month
Weight Loss Non Severe: 5% over 1 month
7.5% over 3 months
10% over 6 months
20% over 1 year
Severe: >5% over 1 month
>7.5% over 3 months
>10% over 6 months
>20% over 1 year
Body Fat Non Severe: Mild Loss
Severe: Severe Loss
Muscle Mass Non Severe: Mild Loss
Severe: Severe Loss
Use of terms such as suspected, likely, concern for, or probable (associated with a specific diagnosis that is being evaluated, monitored, or treated as if it exists) are acceptable and can be coded in the inpatient setting, when documented at the
time of discharge.
Thank you,
Patsy Lara RN BSN CCDS
CDI Specialist
Please contact via tiger text
Please use your independent medical judgment in providing your response.
--- NOTE | 2025-07-31 12:38 | CM ---
Addendum entered by Lacey Robert 07/31/25 14:54:
patient discharge today
updated Gloria who will see patient - she also stated she has her email information
PLAN: home, no needs
son to transport
Original Note:
Patient seen at bedside
no ins. - [facility] information was given to patient
this CM spoke with Gloria from [facility] - she met with patient and pre-screened medicaid-gave patient temporary maint letter for son to fill out and then Gloria can submit. Per patient her son may be in today.
CM consult for food insecurities-information given to patient [email or web address] food resources
PLAN: home, no needs, CM to continue to follow
--- NOTE | 2025-07-31 12:38 | W.DCSUMMARY ---
Discharge Summary
Discharge Data
Date of Admission: 07/30/25
Date of Discharge: 07/31/25
-
Pending Results: No
Hospital Course
55yo F with PMHX of Schatzki ring and esophageal narrowing with Hx of esophageal dilations, PV thrombosis, meningioma, cholecystectomy, cronic pancreatitis, bipolar, HX of alcohol use d/o, HFpEF, current smoker came with 10 days of RUQ and
epigastric pressure and pain, CT showed numerous pancreatic calcifications with the largest one 3.1cm and the other 2.1cm causing mass effect on portal vein, SMV and splenic karri with possible acute on chronic pancreatitis. Also companied of new LLQ
outpouching, found reducible non-incarcerated abd hernia. For weight loss recommended to follow up in [facility] clinic for age apropriate cancer screening. Tolerating food well and medcially stable for D/C. GenSx eval as outpatient for abdominal
hernia. No signs of alcohol withdrawal on discharge day
I have spent at least 51min reviewing chart, test results, communication with consultants and providing direct patient care
Patient as managed for:
#Acute on chronic alcoholic pancreatitis
#Pancreatic cysts with mass effect on portal vein, SVC and splenic vein
#Severe Protein Calorie Malnutrition of Chronic Illness
#Alcohol use d/o
#Asymptomatic bacteriuria
#weight
#Hyponatremia
#Leukocytosis - resolved
#b/l LE dermatitis, suspect venous insufficiency
#Nicotine dependency
#Bipolar
#Calcification of plantar ligament
#Abdominal hernia
Discharge Plan
-
Patient Disposition: Home (Routine Discharge)
Discharge Diagnosis/Procedures: Pancreatitis
Referrals:
[facility] - in less than 1 week
Referral Note: Age appropriate cancer screening
Noreen Paulino MD [Active, Gastroenterology] - in four to six weeks
Gerald France MD [Active, Surgical] - in four to six weeks
Referral Note: Abdominal hernia
NONE,* [Family Provider, Internal Medicine]
Prescriptions:
New
folic acid 1 mg Tablet
1 mg PO DAILY Qty: 30 0RF
thiamine mononitrate (vit B1) 100 mg Tablet
100 mg PO DAILY Qty: 30 0RF
pantoprazole 40 mg tablet,delayed release (DR/EC)
40 mg PO DAILY Qty: 30 0RF
Continued
famotidine 20 mg Tablet
20 mg PO BID
ibuprofen 200 mg Tablet
200 mg PO Q6H PRN (Reason: mild pain)
calcium carbonate-simethicone [Tums-Gas Relief (calc-simeth)] 750-80 mg Tablet,Chewable
2 tab PO QID
Discharge Date and Time
Print Language: CZECH
[2025-07-31 13:58] VITALS: BP 124/74
== END 2025-07-31 14:31 | disposition home or self-care (01) | DRG 438 ==
LOC: 3 WEST ACU 06:23
PROVIDERS: Physician Assistant; ADMITTING PHYSICIAN Internal Medicine; ATTENDING PHYSICIAN Internal Medicine; CONSULT PHYSICIAN Internal Medicine Gastroenterology; EMERGENCY PHYSICIAN Student in an Organized Health Care Education/Training Program
DX: K86.0 Alcohol-induced chronic pancreatitis (principal); E43 Unspecified severe protein-calorie malnutrition; I81 Portal vein thrombosis; K86.2 Cyst of pancreas; Z68.1 Body mass index [BMI] 19.9 or less, adult; E87.1 Hypo-osmolality and hyponatremia; I50.32 Chronic diastolic (congestive) heart failure; L30.9 Dermatitis, unspecified; K85.90 Acute pancreatitis without necrosis or infection, unspecified; K21.00 Gastro-esophageal reflux disease with esophagitis, without bleeding; Z90.49 Acquired absence of other specified parts of digestive tract; F10.10 Alcohol abuse, uncomplicated; I11.0 Hypertensive heart disease with heart failure; F32.A Depression, unspecified; Z96.641 Presence of right artificial hip joint; Z88.1 Allergy status to other antibiotic agents; Z79.899 Other long term (current) drug therapy; Z59.71 Insufficient health insurance coverage; F17.210 Nicotine dependence, cigarettes, uncomplicated; G89.29 Other chronic pain; I48.91 Unspecified atrial fibrillation; K22.4 Dyskinesia of esophagus; K70.10 Alcoholic hepatitis without ascites; Z88.8 Allergy status to other drugs, medicaments and biological substances; Z91.048 Other nonmedicinal substance allergy status
CPT/HCPCS: 74177; 80048; 80053; 80061; 80306; 80307; 81003; 81015; 83690; 83735; 83930; 83935; 84100; 84300; 85025; 85027; 87086; 93005; 96361; 96374; 96375; 99285; Q9967